=== PATIENT | male | born 1995 | race African-American/Black ===

== ENCOUNTER 2023-08-26 04:00 | Emergency (ER) | payer SELFPAY ==
[~2023-08-26] VITALS: Ht 190.5 cm; Wt 120.0 kg
[2023-08-26] MEDS: SODIUM CHLORIDE 0.9% 1,000 ML IV ONE (04:51)
[2023-08-26 04:52] LABS: BASOPHILS % 0.2 % (0.0-2.0); EOSINOPHILS % 0.1 % (0.0-5.0); HEMATOCRIT. 48.1 % (42.0-52.0); HEMOGLOBIN. 16.1 g/dL (14.0-18.0); MEAN CORPUSCULAR HEMOGLOBIN 30.9 pg (28.0-32.0); MEAN CORPUSCULAR HGB CONC 33.5 g/dL (31.0-37.0); MEAN CORPUSCULAR VOLUME 92.1 fL (80.0-94.0); MEAN PLATELET VOLUME 9.9 fl (7.4-10.4); MONOCYTES % 10.4 % (2.0-8.0); NEUTROPHILS % 50.3 % (40.0-76.0); PLATELET 210 x1000/uL (130-400); RED BLOOD CELL COUNT 5.23 mill/uL (4.7-6.1); RED CELL DISTRIBUTION WIDTH 13.6 % (11.6-14.6); WHITE BLOOD COUNT 6.8 x1000/uL (4.5-11.0)
[2023-08-26 05:05] LABS: POTASSIUM 3.9 mEq/L (3.5-5.1)
[2023-08-26 05:06] LABS: CALCIUM 8.8 mg/dL (8.7-10.4)
[2023-08-26 05:11] LABS: CREATININE 1.9 mg/dL (0.6-1.3)
[2023-08-26 06:06] VITALS: PULSE 69; RESP 12; O2SAT 95
[2023-08-26] MEDS: ALBUTEROL (0.083%) 2.5MG/3ML NEB HHN NR (06:06)
[2023-08-26] MEDS: AZITHROMYCIN 500MG/250ML 250 ML IV NR (06:20)
[2023-08-26] MEDS: CEFTRIAXONE 1GM/50ML 50 ML IV NR (06:55)
[2023-08-26 14:25] VITALS: BP 116/70; PULSE 60; RESP 12; TEMP 98.8
== END 2023-08-26 14:29 | disposition left against medical advice (07) ==
LOC: ER 04:00 → CANBEDREQ 14:27 → ER 14:29
DX: J18.9 Pneumonia, unspecified organism (principal); R41.82 Altered mental status, unspecified; N17.9 Acute kidney failure, unspecified; F10.129 Alcohol abuse with intoxication, unspecified; Y90.6 Blood alcohol level of 120-199 mg/100 ml
CPT/HCPCS: 80048; 80320; 83880; 85025; 87040; 36415; 71045; 70450; 94640; 96361; 96365; 96375; 99285; J0456; J0696; Z7610 ×4; J7030; G0480